=== PATIENT | female | born 1940 | race Caucasian/White ===

== ENCOUNTER 2022-08-30 13:59 | Inpatient (IN) ==
[2022-08-30] MEDS ORDERED: SODIUM CHLORIDE 0.9% 1,000 ML IV ONE (16:56)
[2022-08-30] MEDS ORDERED: SODIUM CHLORIDE 0.9% 1,000 ML IV PRN (16:57)
[2022-08-30] MEDS ORDERED: ONDANSETRON 4 MG/2 ML VIAL IV PRN (17:03)
[2022-08-30] MEDS ORDERED: ACETAMINOPHEN 325 MG TABLET PO PRN (17:03)
[2022-08-30 17:33] LABS: Basophils % 0.4 % (0.0-0.8); Hemoglobin 13.1 GM/DL (12.0-16.0); Immature Granulocytes % 0.1 %; Immature Granulocytes Absolute 0.01 #; Lymphocytes # 0.3 10*3/uL (1.4-4.0); Lymphocytes % 3.6 % (21.3-54.2); Mean Corpuscular HGB Conc 29.8 GM/DL (32-36); Mean Corpuscular Volume 106.3 FL (87-102); Mean Platelet Volume 10.5 FL (9.6-12.0); Monocytes # 0.9 10*3/uL (0.11-0.8); Monocytes % 10.9 % (1.7-12.7); Platelet Count 150 T/CUMM (130-400); Red Blood Count 4.14 MC/CUMM (3.8-5.5); White Blood Count 8.1 T/CUMM (4-12)
[2022-08-30] MEDS ORDERED: NICOTINE 21 MG/24 HR PATCH TRANSDERM PRN (17:49)
[2022-08-30 17:59] LABS: Albumin 2.6 G/DL (3.4-5.0); Bilirubin,Total 0.6 MG/DL (0.20-1.00); Calcium 8.8 MG/DL (8.5-10.1); Potassium 4.2 MMOL/L (3.5-5.1)
[2022-08-30] MEDS ORDERED: AMIODARONE INJ 450 MG in DEXTROSE 5% 241 ML IV SCH (18:00)
[2022-08-30] MEDS: SODIUM CHLORIDE 0.9% 1,000 ML IV SCH (18:58)
[2022-08-30 19:03] LABS: Band Neutrophils 4 % (0-10); Lymphocytes 7 % (20-55); Metamyelocytes 2 %; Total Cells Counted 100
[2022-08-30 19:04] LABS: Burr Cells Slight; Platelet Estimate Normal
[2022-08-30] MEDS: cefTRIAXone 1,000 MG in SODIUM CHLORIDE 0.9% 100 ML IV SCH (19:37)
[2022-08-30] MEDS: PANTOPRAZOLE INJ 200 MG in SODIUM CHLORIDE 0.9% 250 ML IV SCH (20:40)
[2022-08-30 21:12] LABS: Bilirubin,Urine Large mg/dL (Negative); Blood, Urine Negative (Negative); Glucose,Urine (UA) Negative (Negative); Ketones,Urine 15 mg/dL (Negative); Nitrite,Urine Positive (Negative); Protein,Urine 30 mg/dL (Negative); Urine Appearance Clear (Clear); Urine Color Dark Yellow (Yellow); Urine Specific Gravity 1.025 (1.001-1.035)
[2022-08-30 21:14] LABS: Bacteria,Urine Many /HPF (Few); Hyaline Casts,Urine 24 /LPF (0-3); Mucus,Urine Occasional /LPF (Occasional); RBC,Urine 4 /HPF (0-4); Squamous Epithelial Cell,Urine Occasional /HPF (0-10)
[2022-08-31] MEDS ORDERED: AMIODARONE INJ 450 MG in DEXTROSE 5% 241 ML IV SCH
[2022-08-31 00:47] LABS: Hematocrit 36.9 VOL% (35.7-47.0); Hemoglobin 11.6 GM/DL (12.0-16.0)
[2022-08-31] MEDS: SODIUM CHLORIDE 0.9% 1,000 ML IV SCH ×3 (03:19→17:41)
[2022-08-31 06:04] LABS: Basophils % 0.1 % (0.0-0.8); Hematocrit 37.5 VOL% (35.7-47.0); Hemoglobin 11.6 GM/DL (12.0-16.0); Immature Granulocytes % 0.3 %; Immature Granulocytes Absolute 0.02 #; Lymphocytes # 0.5 10*3/uL (1.4-4.0); Lymphocytes % 6.6 % (21.3-54.2); Mean Corpuscular HGB Conc 30.9 GM/DL (32-36); Mean Corpuscular Volume 104.2 FL (87-102); Monocytes # 1.6 10*3/uL (0.11-0.8); Monocytes % 21.5 % (1.7-12.7); Neutrophils % 71.5 % (38.7-73.9); Platelet Count 131 T/CUMM (130-400); Red Cell Distribution Width 16.6 % (9.3-17.3); White Blood Count 7.4 T/CUMM (4-12)
[2022-08-31 06:45] LABS: Band Neutrophils 3 % (0-10); Lymphocytes 20 % (20-55); Nucleated Red Blood Cells 1 /100 WBC (0-5); Platelet Estimate Adequate; Total Cells Counted 100
[2022-08-31 06:55] LABS: Alanine Aminotransferase 9 U/L (13-56); Albumin 2.2 G/DL (3.4-5.0); Alkaline Phosphatase 65 U/L (45-117); Aspartate Amino Transferase 8 U/L (0-37); Bilirubin,Total < 0.39 MG/DL (0.20-1.00); Blood Urea Nitrogen 44 MG/DL (7-18); Calcium 8.2 MG/DL (8.5-10.1); Carbon Dioxide 18 MMOL/L (21-32); Chloride 109 MMOL/L (98-107); Cholesterol 79 MG/DL (50-200); Glucose 124 MG/DL (74-106); HDL Cholesterol 42 MG/DL (40-60); Osmolality,Calculated 284.8 MOS/KG (273-304); Potassium 4.5 MMOL/L (3.5-5.1); Risk Ratio 1.88; Sodium 137 MMOL/L (136-145); Total Protein 5.2 G/DL (6.4-8.2); Triglycerides 85 MG/DL (2-150)
[2022-08-31 09:01] LABS: Basophils % 0.5 % (0.0-0.8); Hemoglobin 12.5 GM/DL (12.0-16.0); Immature Granulocytes % 0.3 %; Immature Granulocytes Absolute 0.02 #; Lymphocytes # 0.5 10*3/uL (1.4-4.0); Lymphocytes % 7.8 % (21.3-54.2); Mean Corpuscular HGB Conc 30.5 GM/DL (32-36); Mean Corpuscular Volume 105.7 FL (87-102); Monocytes # 0.9 10*3/uL (0.11-0.8); Monocytes % 13.8 % (1.7-12.7); Neutrophils % 77.6 % (38.7-73.9); Red Blood Count 3.88 MC/CUMM (3.8-5.5); Red Cell Distribution Width 16.8 % (9.3-17.3); White Blood Count 6.4 T/CUMM (4-12)
[2022-08-31 09:05] LABS: Platelet Count 98 T/CUMM (130-400)
[2022-08-31] MEDS: METOPROLOL TARTRATE 25 MG TABLET PO SCH ×2 (09:24→21:52)
[2022-08-31 09:29] LABS: Band Neutrophils 48 % (0-10); Lymphocytes 9 % (20-55); Myelocytes 1 %; Total Cells Counted 100
[2022-08-31 09:30] LABS: Platelet Estimate Decreased
[2022-08-31] MEDS: DILTIAZEM 30 MG TABLET PO SCH ×3 (09:30→20:15)
[2022-08-31 09:31] LABS: Burr Cells Few; Macrocytosis 1+
[2022-08-31 12:01] LABS: Hematocrit 34.6 VOL% (35.7-47.0); Hemoglobin 10.7 GM/DL (12.0-16.0)
[2022-08-31 15:43] LABS: Hematocrit 33.3 VOL% (35.7-47.0); Hemoglobin 10.2 GM/DL (12.0-16.0)
[2022-08-31] MEDS: cefTRIAXone 1,000 MG in SODIUM CHLORIDE 0.9% 100 ML IV SCH (17:42)
[2022-08-31 19:59] LABS: Hematocrit 30.4 VOL% (35.7-47.0); Hemoglobin 9.5 GM/DL (12.0-16.0)
[2022-08-31] MEDS: PANTOPRAZOLE INJ 200 MG in SODIUM CHLORIDE 0.9% 250 ML IV SCH (20:16)
[2022-09-01 01:41] LABS: Hematocrit 32.9 VOL% (35.7-47.0)
[2022-09-01 02:18] LABS: % Iron Saturation 29.4 % (18-50)
[2022-09-01 02:21] LABS: Alanine Aminotransferase < 9 U/L (13-56); Alkaline Phosphatase 50 U/L (45-117); Aspartate Amino Transferase 11 U/L (0-37); Blood Urea Nitrogen 31 MG/DL (7-18); Calcium 7.6 MG/DL (8.5-10.1); Carbon Dioxide 22 MMOL/L (21-32); Chloride 111 MMOL/L (98-107); Glucose 123 MG/DL (74-106); Osmolality,Calculated 282.7 MOS/KG (273-304); Potassium 4.1 MMOL/L (3.5-5.1); Sodium 138 MMOL/L (136-145); Total Protein 4.5 G/DL (6.4-8.2)
[2022-09-01] MEDS: SODIUM CHLORIDE 0.9% 1,000 ML IV SCH ×2 (03:10→12:51)
[2022-09-01 04:17] LABS: Folate 10.34 NG/ML (5.38-24.0)
[2022-09-01 04:50] LABS: Hepatitis B Core IgM Quant 0.13 Index; Hepatitis B Surface Ag Quant < 0.10 Index; Hepatitis B Surface Ag Result Non-Reactive (NonReactive); Hepatitis C Virus Ab Quant < 0.02 Index; Hepatitis C Virus Ab Result Non-Reactive (NonReactive)
[2022-09-01 05:01] LABS: Basophils % 0.3 % (0.0-0.8); Eosinophils # 0.1 10*3/uL (0.0-0.87); Hematocrit 34.1 VOL% (35.7-47.0); Hemoglobin 10.1 GM/DL (12.0-16.0); Immature Granulocytes Absolute 0.06 #; Lymphocytes # 0.7 10*3/uL (1.4-4.0); Lymphocytes % 12.5 % (21.3-54.2); Mean Corpuscular HGB Conc 29.6 GM/DL (32-36); Mean Corpuscular Volume 102.7 FL (87-102); Monocytes # 0.9 10*3/uL (0.11-0.8); Monocytes % 16.2 % (1.7-12.7); Platelet Count 97 T/CUMM (130-400); Red Blood Count 3.32 MC/CUMM (3.8-5.5); Red Cell Distribution Width 19.2 % (9.3-17.3); White Blood Count 5.8 T/CUMM (4-12)
[2022-09-01 05:44] LABS: Band Neutrophils 10 % (0-10); Eosinophils 1 % (0-10); Lymphocytes 13 % (20-55); Total Cells Counted 100
[2022-09-01 05:46] LABS: Macrocytosis 1+; Ovalocytes Slight; Platelet Estimate Decreased; Polychromasia Slight
[2022-09-01] MEDS: DILTIAZEM 30 MG TABLET PO SCH (09:12)
[2022-09-01] MEDS: METOPROLOL TARTRATE 25 MG TABLET PO SCH ×2 (09:13→20:00)
[2022-09-01] MEDS: ATORVASTATIN 10 MG TABLET PO SCH (09:13)
[2022-09-01] MEDS ORDERED: LACTATED RINGERS 1,000 ML IV SCH (14:15)
[2022-09-01] MEDS ORDERED: LIDOCAINE 2% 5 ML VIAL ONE (14:23)
[2022-09-01] MEDS ORDERED: propofoL 200 MG/20 ML VIAL IV ONE (14:23)
[2022-09-01] MEDS ORDERED: ETOMIDATE 20 MG/10 ML VIAL IV ONE (14:23)
[2022-09-01] MEDS ORDERED: PHENYLEPHRINE 1 MG/10 ML SYRINGE IV ONE (14:48)
[2022-09-01] MEDS: cefTRIAXone 1,000 MG in SODIUM CHLORIDE 0.9% 100 ML IV SCH (17:51)
[2022-09-01] MEDS ORDERED: CYANOCOBALAMIN 1000 MCG/1 ML VIAL IM ONE (17:53)
[2022-09-02] MEDS: SODIUM CHLORIDE 0.9% 1,000 ML IV SCH ×3 (01:00→08:29)
[2022-09-02 05:57] LABS: Basophils % 0.5 % (0.0-0.8); Eosinophils # 0.1 10*3/uL (0.0-0.87); Eosinophils % 1.3 % (0.00-10.9); Hematocrit 35.5 VOL% (35.7-47.0); Hemoglobin 10.8 GM/DL (12.0-16.0); Immature Granulocytes % 1.9 %; Immature Granulocytes Absolute 0.12 #; Lymphocytes # 0.7 10*3/uL (1.4-4.0); Lymphocytes % 11.6 % (21.3-54.2); Mean Corpuscular HGB Conc 30.4 GM/DL (32-36); Mean Corpuscular Volume 103.2 FL (87-102); Mean Platelet Volume 10.1 FL (9.6-12.0); Monocytes # 0.7 10*3/uL (0.11-0.8); Monocytes % 10.5 % (1.7-12.7); Neutrophils % 74.2 % (38.7-73.9); Platelet Count 75 T/CUMM (130-400); Red Blood Count 3.44 MC/CUMM (3.8-5.5); Red Cell Distribution Width 18.6 % (9.3-17.3); White Blood Count 6.3 T/CUMM (4-12)
[2022-09-02 06:19] LABS: Anisocytosis Slight; Platelet Estimate Decreased
[2022-09-02 06:30] LABS: Alanine Aminotransferase < 9 U/L (13-56); Alkaline Phosphatase 46 U/L (45-117); Aspartate Amino Transferase 10 U/L (0-37); Bilirubin,Total < 0.39 MG/DL (0.20-1.00); Blood Urea Nitrogen 13 MG/DL (7-18); Calcium 7.7 MG/DL (8.5-10.1); Carbon Dioxide 25 MMOL/L (21-32); Chloride 112 MMOL/L (98-107); Glucose 123 MG/DL (74-106); Osmolality,Calculated 277.5 MOS/KG (273-304); Sodium 139 MMOL/L (136-145); Total Protein 4.5 G/DL (6.4-8.2)
[2022-09-02 06:38] LABS: Calcium 7.7 MG/DL (8.5-10.1); Osmolality,Calculated 277.5 MOS/KG (273-304); Potassium 4.1 MMOL/L (3.5-5.1)
[2022-09-02] MEDS ORDERED: PANTOPRAZOLE 40 MG TABLET PO SCH (07:00)
[2022-09-02] MEDS: METOPROLOL TARTRATE 25 MG TABLET PO SCH (08:29)
[2022-09-02] MEDS: ATORVASTATIN 10 MG TABLET PO SCH (08:29)
[2022-09-02] MEDS ORDERED: CHOLECALCIFEROL 1,000 UNIT TABLET PO SCH (09:00)
[2022-09-02] MEDS ORDERED: PANTOPRAZOLE 40 MG VIAL IV SCH (09:00)
[2022-09-02 12:05] VITALS: BP 104/62
[2022-09-03] MEDS ORDERED: ASPIRIN EC 81 MG TABLET PO SCH (09:00)
== END 2022-09-02 15:57 | disposition home health service (06) | DRG 378 ==
LOC: SUATTDRO 15:43 → N.TELEN 15:43
PROVIDERS: ADMIT Internal Medicine; ATTEND Hospitalist